=== PATIENT | female | born 2000 | race Caucasian/White ===

== ENCOUNTER 2020-10-04 13:49 | Emergency (ER) | payer BC, MEDICAID ==
[~2020-10-04] VITALS: Ht 165.1 cm; Wt 73.0 kg
[2020-10-04] MEDS ORDERED: SODIUM CHLORIDE 0.9% 1,000 ML IV ONE (14:15)
[2020-10-04 14:42] LABS: BASOPHILS % 0.2 % (0.0-2.0); EOSINOPHILS % 0.1 % (0.0-5.0); HEMATOCRIT. 37.2 % (36.0-48.0); HEMOGLOBIN. 12.6 g/dL (12.0-16.0); LYMPHOCYTES % 13.1 % (20.0-50.0); MEAN CORPUSCULAR HEMOGLOBIN 29.1 pg (28.0-32.0); MEAN CORPUSCULAR VOLUME 85.9 fL (81.0-99.0); MEAN PLATELET VOLUME 9.1 fl (7.4-10.4); MONOCYTES % 5.6 % (2.0-8.0); PLATELET 280 x1000/uL (130-400); RED BLOOD CELL COUNT 4.33 mill/uL (4.2-5.4)
[2020-10-04 14:43] LABS: CLARITY URINE TURBID (CLEAR); COLOR URINE YELLOW (YELLOW); KETONES URINE 4+ (NEGATIVE); LEUKOCYTE ESTERASE URINE TRACE (NEGATIVE); NITRITE URINE NEGATIVE (NEGATIVE); OCCULT BLOOD URINE NEGATIVE (NEGATIVE); PROTEIN URINE NEGATIVE (NEGATIVE); SPECIFIC GRAVITY URINE 1.019 (1.005-1.030)
[2020-10-04] MEDS ORDERED: FAMOTIDINE 20MG/2ML VIAL IV ONE ×2 (14:45)
[2020-10-04 14:52] LABS: PROTHROMBIN TIME 10.9 sec (9.6-11.0)
[2020-10-04 14:57] LABS: CHLORIDE 106 mEq/L (98-107)
[2020-10-04 15:00] LABS: PHENCYCLIDINE URINE SCREEN NEGATIVE (NEGATIVE)
[2020-10-04 15:01] LABS: *AMPHETAMINES SCREEN URINE NEGATIVE (NEGATIVE); *BARBITURATES SCREEN URINE NEGATIVE (NEGATIVE)
[2020-10-04 15:04] LABS: METHADONE URINE SCREEN NEGATIVE (NEGATIVE)
[2020-10-04 15:05] LABS: *BENZODIAZEPINES SCREEN URINE NEGATIVE (NEGATIVE)
[2020-10-04 15:09] LABS: OPIATES URINE SCREEN NEGATIVE (NEGATIVE)
[2020-10-04 15:10] LABS: *COCAINE SCREEN URINE NEGATIVE (NEGATIVE)
[2020-10-04 15:13] LABS: CANNABINOID URINE SCREEN PRESUMTIVE POSITIVE (NEGATIVE)
[2020-10-04 15:36] LABS: B-HCG QUANTITATIVE 95166 mIU/mL (<3)
[2020-10-04] MEDS ORDERED: FAMO-135 MT (18:53)
[2020-10-04] MEDS ORDERED: ONDA4TAB5 MT (18:53)
[2020-10-04 19:04] VITALS: BP 125/65
== END 2020-10-04 19:19 | disposition home or self-care (01) ==
LOC: ER 13:52
DX: O26.891 Other specified pregnancy related conditions, first trimester (principal); R10.13 Epigastric pain; F12.10 Cannabis abuse, uncomplicated; E56.0 Deficiency of vitamin E; O20.9 Hemorrhage in early pregnancy, unspecified; Z79.899 Other long term (current) drug therapy; Z3A.01 Less than 8 weeks gestation of pregnancy
CPT/HCPCS: 36415; 76705; 76830; 76856; 80053; 80305; 81003; 81025; 83690; 84702; 85025; 85610; 86850; 86900; 86901; 93005; 96361; 96374; 99285; J3490; J7030; J7040; Z7610

== ENCOUNTER 2020-10-27 17:43 | Emergency (ER) | payer MEDICAID ==
[~2020-10-27] VITALS: Ht 165.1 cm; Wt 75.0 kg
[~2020-10-27 17:43] MED LIST: FAMO-135 MT; ONDA4TAB5 MT
[2020-10-27] MEDS ORDERED: ACETAMINOPHEN 325MG TABLET PO ONE (20:30)
[2020-10-27 21:21] VITALS: BP 119/70
== END 2020-10-27 21:52 | disposition home or self-care (01) ==
LOC: ER 17:43
DX: S60.011A Contusion of right thumb without damage to nail, initial encounter (principal); W23.0XXA Caught, crushed, jammed, or pinched between moving objects, initial encounter; Y93.89 Activity, other specified; Y92.89 Other specified places as the place of occurrence of the external cause
CPT/HCPCS: 29125; 73140; 99283

== ENCOUNTER 2020-12-16 17:21 | Emergency (ER) | payer BC, MEDICAID ==
[~2020-12-16] VITALS: Ht 165.1 cm; Wt 77.0 kg
[2020-12-16 17:28] VITALS: BP 114/62
== END 2020-12-16 18:55 | disposition left against medical advice (07) ==
LOC: ER 17:21
DX: Z53.21 Procedure and treatment not carried out due to patient leaving prior to being seen by health care provider (principal)

== ENCOUNTER 2021-02-24 14:52 | Observation (INO) | payer MEDICAID ==
[~2021-02-24] VITALS: Ht 165.1 cm; Wt 81.6 kg
[2021-02-24 16:44] LABS: CLARITY URINE CLOUDY (CLEAR); COLOR URINE YELLOW (YELLOW); KETONES URINE NEGATIVE (NEGATIVE); LEUKOCYTE ESTERASE URINE 3+ (NEGATIVE); NITRITE URINE NEGATIVE (NEGATIVE); OCCULT BLOOD URINE 2+ (NEGATIVE); PROTEIN URINE 1+ (NEGATIVE); SPECIFIC GRAVITY URINE 1.018 (1.005-1.030)
[2021-02-24] MEDS ORDERED: LACTATED RINGERS 1,000 ML IV SCH (17:15)
[2021-02-24] MEDS ORDERED: CEFAZOLIN 2,000 MG in DEXT 5% WATER 100 ML IV NR (18:30)
== END 2021-02-24 19:00 | disposition home or self-care (01) ==
LOC: 8 EST LDRP 14:52
PROVIDERS: ADMIT Obstetrics & Gynecology; ATTEND Obstetrics & Gynecology
DX: O26.893 Other specified pregnancy related conditions, third trimester (principal); R10.30 Lower abdominal pain, unspecified; R35.0 Frequency of micturition; Z3A.28 28 weeks gestation of pregnancy
CPT/HCPCS: 59025; 81003; 87077; 87086; 87186; 96361; 96365; G0378; J0690; J7060; 96360; 99281; J7120